=== PATIENT | female | born 2000 | race Two or more races ===

== ENCOUNTER 2021-08-21 14:43 | Inpatient (IN) | payer OTHER ==
[~2021-08-21] VITALS: Ht 172.7 cm; Wt 3.2 kg
[2021-08-21] MEDS ORDERED: PRENATAL CAPLE1 EAC1 PO (16:44)
== END 2021-08-24 13:45 | disposition home or self-care (01) | DRG 785 ==
LOC: OB/GYN 14:43 → LDR 14:43 → OB/GYN 08-22 00:48
PROVIDERS: ADMIT Obstetrics & Gynecology Obstetrics; ATTEND Obstetrics & Gynecology Obstetrics
PROC: 0UB70ZZ Excision of Bilateral Fallopian Tubes, Open Approach (ICD-10-PCS; 2021-08-21)
PROC: 4A1HXFZ Monitoring of Products of Conception, Cardiac Rhythm, External Approach (ICD-10-PCS; 2021-08-21)
PROC: 10D00Z1 Extraction of Products of Conception, Low, Open Approach (ICD-10-PCS; principal; 2021-08-21 21:30)
DX: O33.5XX0 Maternal care for disproportion due to unusually large fetus, not applicable or unspecified (principal); Z30.2 Encounter for sterilization; O82 Encounter for cesarean delivery without indication; O48.0 Post-term pregnancy; Z37.0 Single live birth; Z3A.40 40 weeks gestation of pregnancy; Z20.822 Contact with and (suspected) exposure to COVID-19